=== PATIENT | female | born 1950 | race Caucasian/White ===

== ENCOUNTER → 2023-09-09 14:40 | Outpatient (BNVA) | payer MEDICARE, BC, SELFPAY | PROVIDERS: Visit Provider Podiatrist Foot & Ankle Surgery | DX: M20.12 Hallux valgus (acquired), left foot; M21.42 Flat foot [pes planus] (acquired), left foot; M20.42 Other hammer toe(s) (acquired), left foot | CPT/HCPCS: 73630; 99203 ==